=== PATIENT | male | born 1995 | race African-American/Black ===

== ENCOUNTER 2025-08-22 18:27 | Inpatient (IN) | payer OTHER, SELFPAY ==
[2025-08-22] VITALS (9 sets, daily range): BP systolic 122–146; BP diastolic 72–111; PULSE 61–69; BMI 26.9; BMI 26.7
[2025-08-22 14:46] LABS: Hematocrit 44.8 % (39.0-52.0); Hemoglobin 14.7 g/dL (13.0-18.0); Mean Corp Hgb Conc. 32.8 g/dL (33.0-37.0); Mean Corpuscular Volume 85.7 fL (80.0-94.0); Nucleated Red Blood Cells % 0 % (-); Platelet Count 188 10^3/uL (130-400); Red Cell Dist. Width 14.4 % (11.5-14.5)
[2025-08-22 15:02] LABS: ALT (SGPT) 72 U/L (0-50); AST (SGOT) 80 U/L (17-59); Acetaminophen 68 ug/ml (10-30); Albumin 4.9 g/dl (3.5-5.0); Alkaline Phosphatase 58 U/L (38-126); Blood Urea Nitrogen 16 mg/dl (9-20); Calcium 9.8 mg/dl (8.4-10.2); Carbon Dioxide 25 mmol/L (22-30); Chloride 108 mmol/L (98-107); Glucose 105 mg/dl (70-99); Potassium 4.3 mmol/L (3.5-5.1); Sodium 138 mmol/L (135-145); Total Protein 8.3 g/dl (6.3-8.2); eGFR > 60.00
--- NOTE | 2025-08-22 16:10 | ED.GENMED ---
History of Present Illness
General
Chief Complaint: Overdose Unintentional
Source: patient
Exam Limitations: none
Time Seen by Provider: 08/22/25 15:49
Nursing documentation reviewed up to this point in time: agreed with
History of Present Illness
History of Present Illness:
Patient presents to ED secondary to upper abdominal pain associated with multiple vomiting episodes today, including seeing streaks of blood. Denies fever or chills. Abdominal pain discussed that sharp, nonradiating, without any alleviating or
exacerbating factors. For the past 1 month, he has been experiencing right upper tooth pain. He is currently taking clindamycin, but has been taking multiple tablets of Tylenol and Advil to control his pain. Denies diarrhea. Denies dizziness.
Denies chest pain. Denies shortness of breath. Patient otherwise is healthy without any significant medical history.
Review of Systems
Review of Systems
Allergies reviewed?: Yes
All Other Systems: ROS reviewed and negative except as documented in HPI and ROS
Constitutional: Reports no symptoms; Denies fever
EENT: Reports other (Toothache)
Respiratory: Reports no symptoms
Cardiac: Reports no symptoms
ABD/GI: Reports abdominal pain, nausea and vomiting
Musculoskeletal: Reports no symptoms
Skin: Reports no symptoms
Neurological: Reports no symptoms
Phy Exam
Physical Exam
Physical Exam:
Physical Exam
General: moderate distress, not acutely ill. afebrile
Head: nc/at. eomi
Neck: supple. no meningeal signs. #2 tooth: fracture/cavity noted without gingival swelling
Heart: s1/s2 regular rate and rhythm
Lungs: no acute respiratory distress. clear bilaterally
Abdomen: normal bowel sounds. no distention. mild epigastric tenderness to palaption
Neuro: alert and oriented x 3. no focal neurological deficits
Skin: no rash
Psychiatric: well kept. interactive and cooperative
Extremities: no edema. no calf tenderness.
Course
Orders/Labs/Results
Orders:
Orders
08/22/25 Lunch
Clear Liquid
08/22/25 14:37
Complete Blood Count/With Diff Urgent
Comprehensive Metabolic Panel Urgent
Magnesium Urgent
Comment: MAG ADDED ON BY FLOOR 3:50PM 08-22-25
Salicylate Urgent
Comment: ADDON
Tylenol [Acetaminophen] Urgent
08/22/25 15:50
Add On- LAB Urgent
Tests Added?: magnesium
08/22/25 16:09
Electrocardiogram (*1) Urgent
Reason for Study: QTc Monitoring
EKG- Treatment ONCE
0.9% Sodium Chloride 1000 ml [Nss] 1,000 ml IV BOLUS
HYDROmorphone [Dilaudid] 0.5 mg IV NOW STA
Ondansetron Injectable [Zofran] 4 mg IV NOW STA
Pantoprazole 80 mg/100 ml Nss [Protonix] 80 mg in 100 ml IV NOW
Pantoprazole [Protonix IV] 80 mg IV NOW STA
08/22/25 16:10
PTT Urgent
Prothrombin Time Urgent
08/22/25 16:49
Lactate Level [Lactic Acid] Urgent
08/22/25 16:50
Acetylcysteine [Acetadote] 13,120 mg 0.45% Sodium Chloride 250 ml [0.45%NaCl] 200 ml IV NOW
08/22/25 17:03
Add On- LAB Routine
Tests Added?: salicylate level
08/22/25 17:[address] Non Medication Order As Directed
Physician Order: please TT me results of 8PM CMP, INR and Tylenol level.
08/22/25 17:34
Admit/Transfer Patient As Directed
Co-Sign Provider:
Level of Care: Inpatient admission
Assign to:: Telemetry
Physician / Group: Sofiya Schulte
Diagnosis: Unintentional overdose
Reason for Telemetry: Chest Pain syndromes
Date to Stop Telemetry: 08/24/25
Time to Stop Telemetry: 11:00
Reason for Hospitalization: Unintentional Tylenol and Salicylate overdose
Expected length of stay greater than two midnights?: Yes
ELOS- Estimated Length of Stay in days: 3
I certify the patient meets the requirements for IP care: Yes
PRN Pain Medication Management As Directed
May give lesser potent ordered pain med per pt: Yes
preference::
Protocol:: Medication orders for pain may be administered in a
manner that supports deferring to patient preference
when the pt is:
- Requesting an ordered lesser potent pain medication.
Least to most potent pain medications are defined
as: acetaminophen < NSAID < tramadol < opioids
(morphine, oxycodone, hydromorphone).
- Requesting a lesser dose of the same medication IF
ORDERED.
- Requesting a less intrusive route of administration
if both routes are prescribed by the provider (PO <
IV).
08/22/25 17:35
Code Status As Directed
Resuscitation Status: Full Code
08/22/25 18:00
Acetylcysteine [Acetadote] 4,380 mg 0.45% Sodium Chloride 500 ml [0.45%NaCl] 500 ml IV ONCE
08/22/25 19:43
0.9% Sodium Chloride 1000 ml [Nss] 1,000 ml IV 100 mls/hr
HYDROmorphone [Dilaudid] 0.5 mg IV Q3HPRN PRN
08/22/25 19:43
GASTROINTESTINAL CONSULT Routine
Consulting Provider: Basilia Fernandez
Was physician already notified: Yes
Activity As Directed
Activity Level: As Tolerated
INT (Intravenous Needle Therapy) As Directed
Comment: Place 2 IV catheters of the largest bore possible until stable
Orthostatic Vital Signs As Directed
Orthostatic VS Frequency: Now
Comment: then every four hours for twenty-four hours
Pneumatic Compression Sleeves As Directed
Type: Knee high
Vital Signs As Directed
Frequency: Per unit guidelines
DX Deep Vein Thrombosis Video Routine
08/22/25 20:05
CBC/No Diff [Complete Blood Count/No Diff] Urgent
CMP [Comprehensive Metabolic Panel] Urgent
INR [Prothrombin Time] Urgent
Tylenol [Acetaminophen] Urgent
08/22/25 22:00
Acetylcysteine [Acetadote] 8,760 mg 0.45% Sodium Chloride 1000 ml [0.45%NaCl] 1,000 ml IV ONCE
Ondansetron Injectable [Zofran] 4 mg IV Q6HPRN PRN
08/23/25 Breakfast
NPO
Allow oral meds: Yes
Allow clear liquids: No
Complete Blood Count/No Diff IN AM
Comprehensive Metabolic Panel IN AM
INR [Prothrombin Time] IN AM
Magnesium IN AM
Tylenol [Acetaminophen] IN AM
08/23/25 08:00
Pantoprazole [Protonix IV] 40 mg IV BID
08/23/25 12:00
H&H Q8H
08/23/25 20:00
H&H Q8H
08/24/25 11:00
DC Protocol for Telemetry ONCE
Abnormal Lab Results
08/22/25
14:37
MCHC 32.8 L g/dL
(33.0-37.0)
MPV 10.7 H fL
(7.4-10.4)
Chloride 108 H mmol/L
(98-107)
Glucose 105 H mg/dl
(70-99)
AST 80 H U/L
(17-59)
ALT 72 H U/L
(0-50)
Total Protein 8.3 H g/dl
(6.3-8.2)
Salicylates < 1.0 L mg/dl
(2.0-20.0)
Acetaminophen 68 H ug/ml
(10-30)
08/22/25 14:37
08/22/25 14:37
Vital Signs
Initial and Last Documented VS:
Initial Vital Signs
Temp Pulse Resp BP Pulse Ox
98.0 F 52 20 136/75 99
08/22/25 14:28 08/22/25 14:28 08/22/25 14:28 08/22/25 14:28 08/22/25 14:28
Last Documented Vital Signs
Temp Pulse Resp BP Pulse Ox
98.9 F 64 18 145/78 100
08/22/25 20:57 08/22/25 20:57 08/22/25 20:57 08/22/25 20:57 08/22/25 20:57
MDM/Problems Addressed
MDM/Problems Addressed:
Discussed with Dr. Alfaro, [facility] toxicology. Recommend starting N-acetylcysteine treatment, as well as repeating CMP, INR, and Tylenol level, approximately 3 hours prior to completion of NAC treatment. Recommendation forwarded to admitting
team. On-call GI physician, Dr. Muñoz, notified via [place] text.
Critical care statement: A total of 30 minutes of critical care time was provided for this patient. This includes management of unstable vital signs, evaluation of the patient at bedside, reviewing the patient's pertinent medical records, discussion
with consultants, review of old EKGs and review of pertinent medical records. This time with separate from time utilized to perform the aforementioned documented procedures
*Pulse Oximetry
SaO2: 99
Oxygen Mode of Delivery: Room air
Patient hypoxic: no
*Critical Care Note
Total Time (30-74mins, 75-104mins- exclusive of procedures): 30 min
ED Attending Note
-
Portions of this chart may have been created with voice recognition software.� Occasional wrong word or��sound alike� substitutions may have occurred due to the inherent limitations of voice recognition software.
Discharge Plan
Departure
Patient Disposition: Admit
Date of Disposition: 08/22/25
Time of Disposition: 16:53
Admit to: Telemetry
Presentation/result/management discussed w/ accepting MD/DO: Hospitalist
Discharge Problem:
Dental cavity, Gastritis, Tylenol overdose
Interventions
Interventions:
*Risk Screen - Suicide Last Done: 08/22/25 16:39
*General Assessment Last Done: 08/22/25 14:28
*Neglect/Abuse Screening Last Done: 08/22/25 16:39
*ED- Fall Risk Assessment Last Done: 08/22/25 16:39
*ED COVID-19 Vaccine History Last Done: 08/22/25 16:39
*ED Influenza Vaccine History Last Done: 08/22/25 16:39
*Nursing Disposition Last Done: 08/22/25 21:00
ED- Cardiac Assessment Last Done: 08/22/25 16:40
ED- Neurological Assessment Last Done: 08/22/25 16:40
ED-Psychological Assessment Last Done: 08/22/25 16:40
ED- Pulmonary Assessment Last Done: 08/22/25 16:40
[2025-08-22] MEDS: DILAUDID 0.5 MG IV ×2 (16:19→20:07)
[2025-08-22] MEDS: NSS 1000 IV ×2 (16:22→22:54)
[2025-08-22] MEDS: PROTONIX IV 80 MG IV (16:22)
[2025-08-22] MEDS: ZOFRAN 4 MG IV ×2 (16:23→20:06)
[2025-08-22 16:25] LABS: Magnesium 2.0 mg/dl (1.6-2.3)
[2025-08-22] MEDS: PROTONIX 100 IV (16:29)
[2025-08-22 16:36] LABS: INR 1.08; PT 14.5 Sec (11.4-14.6)
[2025-08-22 16:37] LABS: APTT 31.9 Sec (23.4-35.0)
--- NOTE | 2025-08-22 16:59 | HPS.HSE ---
Family Physician
-
Family Physician: * NONE
Chief Complaint
-
upper abdominal pain and vomiting
History of Present Illness
Mr. Dickson Carrillo is a 30 yo man without significant history who presents to the ER with abdominal pain, vomiting with streaks of blood. Patient has been experiencing right upper tooth pain over the past 3-4 days and has been taking multiple
tablets of Advil and Tylenol to control pain.
Patient has a decaying right upper molar. He has been prescribed antibiotics in the past by urgent care. The pain returned severely over the past 3-4 days. He states he had an older prescription of Clindamycin and nearly finished the 7 day course
in 4 days. He has an appointment with his dentist next Wednesday.
Since the pain returned he has been taking Tylenol and/or Advil nearly every 1-2 hours. This morning he states he woke up without significant tooth pain for the first time in days but he had abdominal pain and vomiting. He noticed streaks of blood
in his vomit and came to the ER. In the ER he was given Dilaudid and Zofran and is starting to feel better. RN reports recent vomit was without any bleeding.
No fevers/chills. No chest pain. No diarrhea or black/bloody stools. No rash.
Medical History
Past Medical History
Past Medical History: Reports None
Past Surgical History: Reports None
Social History
Tobacco: Non-smoker
Alcohol: Occasional
Family History
Family History: Not pertinent
Allergies / Home Medications
Allergies reflects when Allergies were last updated in [facility].
Home Medications with original date entered in [facility]
Allergy/Medication List:
Allergies
Allergy/AdvReac Type Severity Reaction Status Date / Time
No Known Allergies Allergy Unverified 08/22/25 14:28
Home Medications
No Meds [No Current Medications] 08/22/25
Review of Systems
-
History Source: Patient
A 12 point ROS was completed and negative except as noted: Yes
Physical Exam
Vital Signs
Vital Signs
Temp Pulse Resp BP Pulse Ox
98.0 F 59 29 125/82 99
08/22/25 14:28 08/22/25 16:00 08/22/25 16:00 08/22/25 16:00 08/22/25 16:14
Physical Exam
General: No Apparent Distress
HEENT: PERRLA and Other (right upper molar with evidence of decay; no significant erythema/swelling in cheek and no lymphadenopathy )
Respiratory: Clear; No Wheezes
Cardiac: S1/S2 and Regular Rhythm
GI: Soft and Non Tender
Musculoskeletal: No Edema
Skin: Warm and Dry; No Rash
Neuro: AO x 3
Psych: Calm
Laboratory Results
-
08/22/25 14:37
08/22/25 14:37
Laboratory Results
PT 14.5 Sec (11.4-14.6) 08/22/25 16:10
INR 1.08 08/22/25 16:10
APTT 31.9 Sec (23.4-35.0) 08/22/25 16:10
Total Bilirubin 0.7 mg/dl (0.2-1.3) 08/22/25 14:37
AST 80 U/L (17-59) H 08/22/25 14:37
ALT 72 U/L (0-50) H 08/22/25 14:37
Alkaline Phosphatase 58 U/L (38-126) 08/22/25 14:37
Data Reviewed
-
Diagnostic Radiology: Report Reviewed by me
Lab Data: Labs Reviewed by me
Impression/Plan
-
Mr. Dickson Carrillo is a 30 yo man without significant history who presents to the ER with abdominal pain, vomiting with streaks of blood. Patient has been experiencing right upper tooth pain over the past month and has been taking multiple tablets
of Advil and Tylenol to control pain.
Triage VS: T 98, P 52, RR 20, BP 136/75, SpO2 99%
LABS: WBC 4.9, Hg 14.7, PLT 188, Na 138, K+ 4.3, Cl 108, CO2 25, BUN 16, Cr 0.9, Glucose 105, Mag 2.0, T. Bili 0.7, AST 80, ALT 72, Alk Phos 58, INR 1.08
Tylenol level 68
Unintentional Tylenol Overdose
-case discussed between Dr. Christopher and Dr. Alfaro ([facility] Toxicology) who recommended starting NAC and repeating CMP/INR/Tylenol in 3 hours prior to completion, to determine whether or not NAC needs to be continued
-admit to telemetry
-follow up CMP/ INR/ Tylenol at 8PM and discuss case again with Toxicology to determine next steps
-one tylenol concentration < 10, INR remains < 2 and AST/ALT normal criteria met to stop NAC
-IV Zofran PRN
-labs ordered for tomorrow morning, will need q 12 hour monitoring while on NAC
Hematemesis
Unintentional Advil overdose
-patient describes streaks of blood in vomiting; per RN most recent without blood
-change protonix gtt to IV Protonix BID
-trend Hg
-GI consulted
-clears tonight, NPO after MN
Tooth decay and pain
-patient completed a course of Clindamycin (too rapidly) - no e/o spreading infection, will hold further antibiotics for now
-I sent a message to [facility], hopefully patient can be seen earlier than Wednesday
-IV Dilaudid PRN pain - avoid Tylenol/Motrin
DVT PPx SCD
FULL CODE
76 minutes spent on patient care
[2025-08-22] MEDS: ACETADOTE 265.6 MG IV (17:27)
[2025-08-22 17:42] LABS: Salicylate < 1.0 mg/dl (2.0-20.0)
[2025-08-22] MEDS: ACETADOTE 521.9 MG IV (18:29)
[2025-08-22 20:16] LABS: Hematocrit 42.8 % (39.0-52.0); Hemoglobin 14.1 g/dL (13.0-18.0); Mean Corp Hgb Conc. 32.9 g/dL (33.0-37.0); Mean Corpuscular Volume 84.6 fL (80.0-94.0); Platelet Count 179 10^3/uL (130-400); Red Cell Dist. Width 14.4 % (11.5-14.5)
[2025-08-22 20:24] LABS: INR 1.22; PT 15.9 Sec (11.4-14.6)
[2025-08-22 20:41] LABS: ALT (SGPT) 69 U/L (0-50); AST (SGOT) 53 U/L (17-59); Acetaminophen 15 ug/ml (10-30); Albumin 4.7 g/dl (3.5-5.0); Alkaline Phosphatase < 20 U/L (38-126); Blood Urea Nitrogen 14 mg/dl (9-20); Calcium 9.4 mg/dl (8.4-10.2); Carbon Dioxide 26 mmol/L (22-30); Chloride 107 mmol/L (98-107); Estimated Creatinine Clearance > 125 ml/min; Glucose 90 mg/dl (70-99); Potassium 4.7 mmol/L (3.5-5.1); Sodium 136 mmol/L (135-145); Total Protein 7.9 g/dl (6.3-8.2); eGFR > 60.00
--- NOTE | 2025-08-22 21:37 | W.PN.UPDATE ---
Update Note
Progress Note Update
Lab result received (INR 1.22, AST 53, ALT 69, Acetaminophen 15), discussed with Dr. Alfaro ([facility] Toxicology) phone #[phone]
He recommended to continue the plan with the acetylcysteine 8,760 mg (16 hrs bag ) and recheck INR and CMP at 10 am. If LFTs trending up, or INR more than 2 to order another acetylcysteine 8,760mg (16hrs bag) and to recheck the INR and CMP 4 hrs
before the bag is ending.
[2025-08-22] MEDS: ACETADOTE 1043.8 MG IV (22:54)
[2025-08-22] MEDS: COMPAZINE 10 MG IV (23:25)
[2025-08-23 03:00] VITALS: BP 135/83; BP 137/86; BP 146/93; PULSE 65; PULSE 82
[2025-08-23 07:41] VITALS: BP 124/75; BP 131/74; BP 135/86; PULSE 64; PULSE 66; PULSE 78
[2025-08-23 08:18] LABS: Hematocrit 40.9 % (39.0-52.0); Hemoglobin 13.6 g/dL (13.0-18.0); Mean Corp Hgb Conc. 33.3 g/dL (33.0-37.0); Mean Corpuscular Volume 83.5 fL (80.0-94.0); Platelet Count 163 10^3/uL (130-400); Red Cell Dist. Width 14.4 % (11.5-14.5)
[2025-08-23 08:22] LABS: INR 1.25; PT 16.0 Sec (11.4-14.6)
[2025-08-23] MEDS: NSS (PRESERVATIVE FREE) 10 ML IV (08:55)
[2025-08-23] MEDS: PROTONIX IV 40 MG IV (08:55)
[2025-08-23 09:19] LABS: ALT (SGPT) 53 U/L (0-50); AST (SGOT) 31 U/L (17-59); Acetaminophen < 10 ug/ml (10-30); Albumin 4.1 g/dl (3.5-5.0); Alkaline Phosphatase 36 U/L (38-126); Blood Urea Nitrogen 10 mg/dl (9-20); Calcium 9.5 mg/dl (8.4-10.2); Carbon Dioxide 22 mmol/L (22-30); Chloride 110 mmol/L (98-107); Estimated Creatinine Clearance > 125 ml/min; Glucose 67 mg/dl (70-99); Magnesium 1.8 mg/dl (1.6-2.3); Potassium 4.0 mmol/L (3.5-5.1); Sodium 137 mmol/L (135-145); eGFR > 60.00
[2025-08-23 09:54] LABS: Total Protein 7.1 g/dl (6.3-8.2)
[2025-08-23] MEDS: NSS 1000 IV (10:24)
--- NOTE | 2025-08-23 10:55 | CON.GI ---
Addendum entered and electronically signed by Kathia Muñoz DO 08/23/25 12:42:
The patient was seen and examined by me independently in collaboration with the nurse practitioner.
Past medical history/social history/medications/allergies/family history reviewed.
Lab data and imaging data reviewed.
Dickson Carrillo is a 30 y.o. male who presented to yesterday after unintentionally overdosing on tylenol and NSAIDs for treatment of a toothache. He reports taking clindamycin q2 hours, 4 or 5 tablets of 500mg tylenol every hour for about 5 hours
as well as advil every 1-2 hours. Also reports taking aboHe then started to feel nauseous and vomited several times. He was started on NAC gtt. Additionally, reports hematemasis, described as streaks of blood, no clots, small amount, in the setting
of retching. Endorses social etoh consumption. No family history of liver disease.
Initial LFTs:
Tbili 0.7
AST 80
ALT 72--> 53
Alk phos 58
Hgb 14.7-->14.1 --> 13.6
BUN 16--> 14 --> 10
Cr. 0.9
Plt 188
INR 1.08--> 1.22 --> 1.25
PT 14.5--> 15.9 --> 16
Glucose 90 --> 67
Acetaminophen level 68 --> 15 --> <10
Salicyclates <1
#Unintentional tylenol OD
-Acetaminophen level now <15
-INR/PT trending up on most recent labs
-LFTs improving
-continue NAC gtt until INR trends down, if trending down on next labs, okay to stop nac and plan for d/c with repeat LFTs in the next few days as an outpatient
-low blood glucose levels, currently NPO, start diet, doubt this represents loss of synthetic function
#Hematemasis-- scant streaks of bright red blood in setting of retching
-suspect erosive esophagitis vs. gastritis vs. MWT vs. ulcer
-hemoglobin and BUN stable
-PPI IV BID
-no signs of active GI bleeding
-will advance diet
-if signs of active bleeding or recurrent hematemesis can discuss inpatient evaluation, otherwise, can perform outpatient EGD
Original Note:
Consultation
-
Date/Time Consultation Requested: 08/22/251944
Date/Time Consultation Performed: 08/23/25 1055
Requesting Provider: Sofiya Schulte MD
Performing Provider: JANIE Rodriguez, Debbie Muñoz DO
Reason for Consultation: tylenol overdose
Medical History
Chief Complaint / HPI
Chief Complaint: abdominal pain
History of Present Illness:
Pt is a 30yo with hx no significant medical problems with onset of tooth pain. He was taking left over Clindamycin from prior infection but also admits to taking about 40 tablets or 1/2 bottle of Tylenol and 20 tabs of Advil over 3-4 days for pain.
He was having difficulty getting appointment for tooth issue. He admits over time with tooth and meds began with nausea and vomiting with streak of blood then no blood on further vomiting. He is now improved. He currently admits to some tooth
pain with low grade temp but denies odynophagia, dysphagia, GERD, abdominal pain, diarrhea, cosntiaption, blood or black in stools. Last stool several days ago. No hx prior GI issues, prior EGD or colonoscopy.
Past Medical History
Past Medical History: Other (tooth infection)
Social History
Tobacco: Non-Smoker
Alcohol: Occasional (social )
Drug: None
Personal: Other (girlfriend )
Living: Other (girlfriend )
Family History
Family History: Other (no family hx GI issues)
Allergies / Home Medications
Allergy/AdvReac Type Severity Reaction Status Date / Time
No Known Allergies Allergy Unverified 08/22/25 14:28
�Medication �Instructions �Recorded
No Meds [No Current Medications] 08/22/25
Review of Systems
-
History Source: Patient
Constitutional: Reports Chills
EENT: Reports No Symptoms
Respiratory: Reports No Symptoms
Abdomen/GI: Reports Abdominal Pain (on admission now denies ), Nausea and Vomiting (small streak of blood now resolved )
: Reports No Symptoms
Musculoskeletal: Reports No Symptoms
Skin: Reports No Symptoms
Neurological: Reports Weakness
Endocrine: Reports No Symptoms
Hematologic/Lymphatic: Reports No Symptoms
Vital Signs
Temp Pulse Resp BP Pulse Ox
99.3 F 64 14 131/74 100
08/23/25 07:41 08/23/25 07:41 08/23/25 07:41 08/23/25 07:41 08/23/25 07:41
Physical Exam
Exam
General: Well Developed, Well Nourished and No Apparent Distress
HEENT: Normocephalic, Anicteric and Other ( difficult to visualize tooth in back of mouth with inflammation)
Respiratory: Clear
Cardiac: Regular Rhythm
GI: Soft, Non Tender and Non Distended
Musculoskeletal: No Clubbing and No Cyanosis
Skin: Warm
Neuro: Awake, Alert and AO x 3
Psych: Calm
Results
WBC 8.1 10^3/uL (4.8-10.8) 08/23/25 06:56
Hgb 13.6 g/dL (13.0-18.0) 08/23/25 06:56
Hct 40.9 % (39.0-52.0) 08/23/25 06:56
MCV 83.5 fL (80.0-94.0) 08/23/25 06:56
Plt Count 163 10^3/uL (130-400) 08/23/25 06:56
Absolute Neuts (auto) 2.9 10^3/uL (1.4-6.5) 08/22/25 14:37
PT 16.0 Sec (11.4-14.6) H 08/23/25 06:56
INR 1.25 08/23/25 06:56
APTT 31.9 Sec (23.4-35.0) 08/22/25 16:10
Sodium 137 mmol/L (135-145) 08/23/25 06:56
Potassium 4.0 mmol/L (3.5-5.1) 08/23/25 06:56
Chloride 110 mmol/L (98-107) H 08/23/25 06:56
Carbon Dioxide 22 mmol/L (22-30) 08/23/25 06:56
BUN 10 mg/dl (9-20) 08/23/25 06:56
Creatinine 0.8 mg/dL (0.7-1.3) 08/23/25 06:56
Calcium 9.5 mg/dl (8.4-10.2) 08/23/25 06:56
Total Bilirubin 0.8 mg/dl (0.2-1.3) 08/23/25 06:56
AST 31 U/L (17-59) 08/23/25 06:56
ALT 53 U/L (0-50) H 08/23/25 06:56
Alkaline Phosphatase 36 U/L (38-126) L 08/23/25 06:56
Diagnostic Image Results:
Prior GI Procedures:
EGD:
none
Colonoscopy:
none
Assessment / Plan
-
Pt is a 30yo with hx no significant medical problems with onset of tooth pain. He was taking left over Clindamycin from prior infection but also admits to taking about 40 tablets or 1/2 bottle of Tylenol and 20 tabs of Advil over 3-4 days for pain.
He was having difficulty getting appointment for tooth issue. He admits over time with tooth and meds began with nausea and vomiting with streak of blood then no blood on further vomiting. He is now improved. He currently admits to some tooth
pain with low grade temp but denies odynophagia, dysphagia, GERD, abdominal pain, diarrhea, cosntiaption, blood or black in stools. Last stool several days ago. No hx prior GI issues, prior EGD or colonoscopy.
Laboratory Tests
08/22/25 08/22/25 08/22/25
14:37 16:10 20:05
INR 1.08 1.22
Total Bilirubin 0.7 0.7
AST 80 H 53
ALT 72 H 69 H
Alkaline Phosphatase 58 < 20 L
Acetaminophen 15
08/23/25 08/23/25
06:56 12:00
INR 1.25 Pending
Total Bilirubin 0.8 Pending
AST 31 Pending
ALT 53 H Pending
Alkaline Phosphatase 36 L Pending
Acetaminophen < 10 L
Laboratory Tests
08/22/25 08/22/25 08/23/25
14:37 20:05 06:56
Hgb 14.7 14.1 13.6
-tooth infection with low grade temp
-concern for unintentional Tylenol overdose and increased Advil use prior to admission for tooth pain
-episode of hematemesis
PLAN:
concern for Tylenol overdose -- continue protocol and recommendations as review with [facility] toxicoloty Dr. Alfaro
LFT's, INR, and Tylenol level stable
pt with concern for hematemesis - no recurrent issues hold on EGD
cont regular diet
reviewed with nursing -- hospitalist working of oral surgery follow up after discharge to address tooth issues
discussed at length with patient concern for overdose of medication and affects on liver and GI tract
advised to return to ER for any problems after discharge
NSAID, tylenol, and liver toxic medication avoidance
-
-
Thank you for consultation and allowing me to participate in the patient's care. Please call the automation controls engineer GI physician during the after hours with any questions or concerns.
[2025-08-23 11:36] VITALS: BP 135/72; BP 143/74; BP 149/85; PULSE 66; PULSE 76; PULSE 90
--- NOTE | 2025-08-23 11:36 | W.PN.HOSP.TC ---
Addendum entered and electronically signed by Noemí Jones MD 08/23/25 16:13:
Dr Mejia will see pt in their [place] office tomorrow aqt 10..15 am for tooth extraction.
Addendum entered and electronically signed by Noemí Jones MD 08/23/25 15:48:
Right upper molar-last molar with a cavity noted. No abscess noted around on clinical exam
Addendum entered and electronically signed by Noemí Jones MD 08/23/25 15:42:
Seen and examined the patient. Agree with the plan formulated by the resident. See changes in my documentation
30-year-old male with abdominal pain vomiting with streaks of blood. He has been having right upper tooth pain and has been taking Advil and Tylenol to control the pain he had an old prescription of clindamycin which he completed he has an
appointment with dentist coming up.
Patient had toothache almost 2 months ago when he was seen and was given penicillin from urgent care. Patient stated that it did not help him. Then he took some amoxicillin from a friend and he got slightly better. Then he had saw a dentist who
was charging a lot of money to pull the tooth therefore he got a clindamycin prescription from the dentist. As he felt better he save the clindamycin and did not take it. A few days ago his tooth started acting up again and he took that
clindamycin for 4 days now. He also was taking a lot of Tylenol and ibuprofen which made him have abdominal pain nausea vomiting which brought him to the hospital this time. Patient stated that he has an appointment with Dr. Dashawn Echavarria in
[place] on Wednesday.
Patient is anxious to go home and I got several texts from nursing about him wanting to get out of here.
Patient's mother and significant other at bedside.
Patient adamant about going home today.. Will not stay another night despite me convincing him.
On examination awake alert oriented
Cardiovascular stenosis appreciated
Chest clear to auscultation
Abdomen soft nontender
# Nausea vomiting and abdominal pain
Unintentional Tylenol overdose
[facility] started and completed
LFTs have improved INR 1.2 and Tylenol level less than 10
LFTs are improving
Tylenol level was 68->15-> less than 10
GI consulted, noted
# Hematemesis-likely secondary to NSAID use
Hemoglobin stable
Continue Protonix , changed to p.o. for discharge
GI has been consulted
Patient had a meal and states that he is not hungry anymore for another roommate and feels fine. He did not vomit since before 7 PM yesterday
# Incomplete right bundle branch block-outpatient follow-up. Likely unremarkable given no symptoms of chest pain or shortness of breath
# Tooth infection
Patient just finished a course of clindamycin he took it for 4 days I will proceed with Augmentin course until he sees his dentist
# DVT prophylaxis-SCDs
# Full code
Case discussed with patient's significant other and patient's mother at bedside
Discussed with nursing
Discussed with GI, okay for discharge
Dr Rodriguez discussed with oromaxillary facial surgery however since patient is leaving and wants to keep his appointment with his own dentist on Wednesday we will, lower patient request discharge.
He needs x-rays of the teeth wants to get it done at the dental office.
Part of this note was created using voice recognition system. Occasional wrong word or��sound alike� substitutions may have inadvertently occurred due to the inherent limitations of voice recognition software. If noted kindly bring it to my
attention for correction.
Original Note:
Today's Communication/Plan
-
q8h labs, GI consult
Assessment / Plan
Assessment / Plan
30M w/ no significant PMHx, who has been dealing with dental pain and endorses taking 12g of Acetaminophen in 6 hours and 4.8g of Ibuprofen over the same period of time, who presented with abdominal pain, blood streaked emesis and an acetaminophen
level of 68, INR 16, and mildly elevated transaminases. Patient was admitted to receive NAC treatment in the setting of acetaminophen toxicity.
1. Acetaminophen Toxicity
- Secondary to unintentional Tylenol overdose
- Per subjective history, approximately 12 g ingestion in 6 hours.
- NAC suggested by [facility] toxicology department (Dr. Alfaro)
- Tylenol concentration downtrending, now less than 10
- q8H CMP, PT/INR
- Criteria to stop NAC: 1 Tylenol concentration less than 10, INR remains less than 2, AST ALT normalized
- Continue IV Zofran
2. Hematemesis
- Likely secondary to unintentional Advil overdose
- Patient started on IV Protonix twice daily, continue
- No episodes of emesis since last night
- Await GI consideration
3. Dental Decay
- Discussed with OMFS, can make appointment with them for extraction at time of discharge
- Continue pain control, avoid Tylenol/NSAIDs
DVT PPX: SCD
Diet: NPO
Code Status: FULL
Anticipated Discharge: Within 24 hours
Subjective/Interval History
-
Date of Service: August 23, 2025
Patient seen and examined while resting comfortably in bed. Since this is my first time meeting the patient, I performed a full history and physical.
Briefly, the patient is a 30M w/ no significant PMHx who has been dealing with dental pain. The patient endorses that he been experiencing increased pain over the past few days. The patient has been taking Tylenol and Advil as directed for 2 days.
However yesterday, starting sometime in the morning, patient endorses taking 4-5 500 mg Tylenol tabs every hour and 3-4 200 mg Advil tabs every hour for approximately 6 hours. Patient lay down to get up, and when he woke up he was feeling
lightheaded. Patient had multiple episodes of vomiting, some episodes with blood streaking.
This morning, patient endorses no abdominal pain, no vomiting since admission, and no acute complaints.
Objective Data
-
Labs:
Laboratory Results
08/23/25 08/23/25 08/23/25
06:56 12:00 20:00
WBC 8.1
Hgb 13.6 Pending Pending
Hct 40.9 Pending Pending
Plt Count 163
PT 16.0 H Pending
INR 1.25 Pending
Sodium 137 Pending
Potassium 4.0 Pending
Chloride 110 H Pending
Carbon Dioxide 22 Pending
BUN 10 Pending
Creatinine 0.8 Pending
Glucose 67 L Pending
Calcium 9.5 Pending
Total Bilirubin 0.8 Pending
AST 31 Pending
ALT 53 H Pending
Alkaline Phosphatase 36 L Pending
Vital Signs:
Vital Signs
Temp Pulse Resp BP Pulse Ox
99.3 F 64 14 131/74 100
08/23/25 07:41 08/23/25 07:41 08/23/25 07:41 08/23/25 07:41 08/23/25 07:41
I&O
08/22/25 08/23/25 08/24/25
06:59 06:59 06:59
Intake Total 800 / 800
Balance 800 / 800
Review of Systems
-
History Source: Patient
All other systems: Reviewed and negative
Physical Exam
-
General: Well Developed, Well Nourished, No Apparent Distress and Comfortable
HEENT: Normocephalic, Atraumatic and Moist Mucous Membranes
Respiratory: Clear to Auscultation and Non Labored Respirations; Negative Wheezes, Rales, Rhonchi or Crackles
Cardiac: Regular Rhythm and S1/S2
GI: Soft, Nontender, Nondistended and Normal Bowel Sounds
Musculoskeletal: No Clubbing, No Cyanosis and No Edema
Skin: Warm and Dry
Neuro: Awake, Alert, Oriented and No Motor Deficits; Negative Tremors or Sedated
Psych: Calm
Data Reviewed
-
Total Time Spent with Patient (in minutes): 32
Labs: Labs Reviewed by me and Discussed with Patient
[2025-08-23 11:37] VITALS: BP 143/74
[2025-08-23] MEDS: DILAUDID 0.5 MG IV (11:59)
[2025-08-23 13:05] LABS: INR 1.22; PT 15.7 Sec (11.4-14.6)
[2025-08-23 13:14] LABS: Hematocrit 38.0 % (39.0-52.0); Hemoglobin 12.9 g/dL (13.0-18.0)
[2025-08-23 13:16] LABS: ALT (SGPT) 45 U/L (0-50); AST (SGOT) 26 U/L (17-59); Albumin 4.0 g/dl (3.5-5.0); Alkaline Phosphatase 33 U/L (38-126); Blood Urea Nitrogen 9 mg/dl (9-20); Calcium 9.3 mg/dl (8.4-10.2); Carbon Dioxide 24 mmol/L (22-30); Chloride 109 mmol/L (98-107); Estimated Creatinine Clearance > 125 ml/min; Glucose 84 mg/dl (70-99); Potassium 3.8 mmol/L (3.5-5.1); Sodium 135 mmol/L (135-145); Total Protein 6.9 g/dl (6.3-8.2); eGFR > 60.00
[2025-08-23 14:50] VITALS: BP 134/77
[2025-08-23 14:51] VITALS: BP 130/86; BP 134/77; BP 140/85; PULSE 66; PULSE 75
--- NOTE | 2025-08-23 15:50 | W.[place]-PDMP ---
[place]-PD[place]
-
Checked the [place]- Prescription Drug Monitoring Program website, no red flags identified; safe to proceed with prescription.
--- NOTE | 2025-08-23 15:50 | W.DS.TRANS ---
DC Summary - Change Control Coordinator
-
Discharge Instructions:
Discharge Diagnosis/Procedures Tylenol toxicity
Gastritis secondary to NSAIDs
Tooth infection
Incomplete right bundle branch block on EKG
Diet As tolerated
Activity As tolerated
Driving Restrictions Do not drive when you take oxycodone
Instructions:
Stand-Alone Forms:
Changes to Home Medications: Yes
Discharge Medications:
DC Medications w/original date entered in [employer]
amoxicillin 875 mg-potassium clavulanate 125 mg tablet 1 tab PO Q12 dental infection #14 tabs 08/23/25
oxycodone 5 mg tablet 5 mg PO Q8HPRN PRN moderate pain #16 tabs 08/23/25
pantoprazole 40 mg tablet,delayed release (Protonix) 40 mg PO DAILY Gastrointestinal issue #30 tabs 08/23/25
sennosides 8.6 mg capsule (senna) 8.6 mg PO HS PRN when you take Oxycodone #20 caps 08/23/25
Home Medication Changes
all above new
Pending Results: No
[2025-08-23] MEDS: AUGMENTIN 875 MG/125 MG 1 TABLET PO (16:36)
--- NOTE | 2025-08-23 16:48 | CM ---
manager entry reviewed patient's chart and met with patient and patient was admitted with possible Tylenol toxicity per physician notes, patient states he lives with his significant other is independent with adl's and ambulation, no dme, patient
reports that he does not have a primary care physician.
Pharmacy: [facility]
Plan; Home when stable.
--- NOTE | 2025-08-23 17:30 | W.DCSUMMARY ---
Discharge Summary
Discharge Data
Date of Admission: 08/22/25
Date of Discharge: 08/23/25
Total time spent discharging patient (in min): 50
-
Pending Results: No
Hospital Course
Dickson Carrillo is a 30-year-old male with no significant past medical history who had recently been dealing with dental pain. He presented to the emergency department on 08/22/2025 with abdominal pain vomiting with streaks of blood.
HISTORY OF PRESENT ILLNESS
Patient had been having dental pain for approximately 2 months. Initially he went to urgent care who prescribed him penicillin which did not help. He then obtained amoxicillin from a friend, and his pain got slightly better. When the pain
recurred, patient saw dentist who was charging a lot of money to have the tooth pulled. This dentist prescribed him clindamycin however he did not take it as he began to feel better. 4 days ago, the patient noticed that the tooth pain had
returned, he decided to start his clindamycin course. Clindamycin was prescribed as a 7-day course, however the patient finished the antibiotics in 4 days. He endorsed that he had also been taking Tylenol and Advil for this four day period.
Initially had been taking it as directed. However on the day of arrival, patient endorsed that he was experiencing increased pain and thus ended up taking approximately 4 extra strength Tylenol per hour for approximately 6 hours (total equals 12
g), and 4 regular strength Advil per hour for 6 hours (total equals 4.8 g). Patient lay down to take a nap, when he woke up started to experience the abdominal pain and episodes of vomiting, some with streaking of blood.
ED COURSE
In the emergency department, patient was noted to have an acetaminophen level of 68, INR 16, and mildly elevated transaminases. The patient was admitted to receive NAC treatment (at the suggestion of [facility] wrinkle chaser Dr. Alfaro) in the
setting of acetaminophen toxicity.
HOSPITAL COURSE
In the setting of NAC treatment, patient's PT thang to 16.0, before beginning to drop again to 15.7. Patient's transaminases also eventually normalized. His acetaminophen level dropped to below 10 mcg/mL. Although the patient did not have any
additional episodes of vomiting was admitted, his hemoglobin continued to trend downwards ultimately to 12.9 just prior to leaving the hospital. Patient was adamant about returning home. The primary team tried to convince him to stay another
night, however the patient declined. He did not have any signs of active bleeding or hematemesis, and the corrugator supervisor felt that a EGD could be performed in the outpatient setting. The patient was discharged home on 08/23 with oral
antibiotics, short course of opioid pain control, oral proton pump inhibitors and referrals to the supervisor color making, the corrugator supervisor, and the oral maxillofacial surgeon who agreed to see the patient today for discharge for tooth extraction. He
was given instructions to stop Tylenol and ibuprofen.
DISCHARGE RECOMMENDATIONS
An appointment was made to follow-up with the oral maxillofacial surgeon on the day of her discharge.
Patient advised, not following up with dental care can lead to serious complications.
Patient started on oral Augmentin in the interim.
Patient started on a short course of oxycodone interim, with Senokot for potential opioid-induced constipation.
Patient advised to follow-up with supervisor color making, incomplete right bundle branch block found on EKG.
Patient given a follow-up appointment with gastroenterology in order to discuss outpatient EGD in the setting of GI bleed.
Patient started on oral proton pump inhibitor in the interim.
Patient advised to stop taking Tylenol and Advil.
Follow-up with primary care physician for additional recommendations.
Discharge Plan
-
Patient Disposition: Home (Routine Discharge)
Discharge Diagnosis/Procedures: Tylenol toxicity
Gastritis secondary to NSAIDs
Tooth infection
Incomplete right bundle branch block on EKG
Diet: As tolerated
Activity: As tolerated
Driving Restrictions: Do not drive when you take oxycodone
Activity Restrictions/Additional Instructions:
It is very important that you follow-up with dentist as scheduled to get that tooth taken care of. This can lead to serious complications if not taken care of. Oxycodone can cause confusion as well as constipation. Take Senokot 8.6 mg at night
[id number] when you take oxycodone. Also take MiraLAX.
Follow-up with cardiology as reviewed
It is very important that you make all these follow-up visits as recommended
you can see tomorrow at 10.15 am on 08/24/25 at [address] [place] [address]
Referrals:
Isaiah Veras MD [Active, Cardiology]
Referral Note: Incomplete RBBB
Devora Mejia DDS [Active, Oral Surgery]
NONE,* [Family Provider, Internal Medicine]
Kathia Muñoz DO [Active, Gastroenterology]
Additional Discharge Medication Instructions: Stop Tylenol and ibuprofen
Prescriptions:
New
amoxicillin-pot clavulanate 875-125 mg Tablet
1 tab PO Q12 Qty: 14 0RF
oxycodone 5 mg Tablet
5 mg PO Q8HPRN PRN (Reason: moderate pain) Qty: 16 0RF
senna 8.6 mg capsule
8.6 mg PO HS PRN (Reason: when you take Oxycodone) Qty: 20 0RF
pantoprazole [Protonix] 40 mg tablet,delayed release (DR/EC)
40 mg PO DAILY Qty: 30 0RF
Discharge Orders:
Discharge Patient (As Directed); Ordered 08/23/25
Ordered By: Salas Rodriguez
Discharge Date and Time
Print Language: TURKISH
== END 2025-08-23 17:41 | disposition home or self-care (01) | DRG 379 ==
LOC: 4 WEST ACU 18:27
PROVIDERS: Emergency Medicine; ADMITTING PHYSICIAN Student in an Organized Health Care Education/Training Program; ATTENDING PHYSICIAN Hospitalist; EMERGENCY PHYSICIAN Emergency Medicine; OTHER PHYSICIAN Internal Medicine
DX: K29.71 Gastritis, unspecified, with bleeding (principal); T39.395A Adverse effect of other nonsteroidal anti-inflammatory drugs [NSAID], initial encounter; K04.7 Periapical abscess without sinus; I45.10 Unspecified right bundle-branch block; K02.9 Dental caries, unspecified
CPT/HCPCS: 80053; 80143; 80179; 83605; 83735; 85014; 85018; 85025; 85027; 85610; 85730; 93005; 96361; 96374; 96375; 99291; J0132; J7030